=== PATIENT | male | born 1965 | race Caucasian/White ===

== ENCOUNTER → 2020-07-03 11:19 | Outpatient (CLI) | payer BC, SELFPAY ==
[2020-07-03] MEDS: COVID-19 VACC #1, MRNA(MOD) 100 MCG/0.5 ML VIAL IM (11:31)
== END ==
PROVIDERS: Visit Provider Internal Medicine
DX: Z23 Encounter for immunization (principal)
CPT/HCPCS: 0011A; 91301

== ENCOUNTER → 2020-07-31 11:17 | Outpatient (CLI) | payer BC, SELFPAY ==
[2020-07-31] MEDS: COVID-19 VACC #2, MRNA(MOD) 100 MCG/0.5 ML VIAL IM (11:22)
== END ==
PROVIDERS: Visit Provider Internal Medicine
DX: Z23 Encounter for immunization (principal)
CPT/HCPCS: 0012A; 91301